=== PATIENT | female | born 1980 | race Caucasian/White ===

== ENCOUNTER 2016-09-15 11:43 | Emergency (ER) | payer OTHER, MEDICAID ==
[~2016-09-15] VITALS: Ht 160 cm; Wt 74.0 kg
[2016-09-15 11:44] VITALS: BP 149/69; PULSE 88; RESP 16; TEMP 98.7; O2SAT 98
[2016-09-15 13:06] VITALS: TEMP 100.1
--- NOTE | 2016-09-15 13:06 | PD ---
HPI Chief Complaint: Headache Time Seen by Provider: 13:06 Travel History International Travel<30 days: No Contact w/Intl Traveler<30days: No Traveled to known affect area: No History of Present Illness HPI 35-year-old female presents to the emergency Department with complaint of body pain from head to toe that started on Saturday. She denies nasal congestion, ear pain, sore throat, cough. Denies chest pain, shortness of breath, abdominal pain, nausea, vomiting. She noticed a red streak to her right breast this morning. She is currently breast-feeding. Reports feeling fatigued. Reports fever of 100.0 this morning prior to ER visit. She was seen at [facility], [place] prior to coming here and was tested for the flu which was negative and told she had an upper respiratory infection and given a prescription for antibiotics. Has taken Tylenol and ibuprofen with no relief of symptoms. Allergies to penicillin and Septra. Does not have current established primary care provider. History of asthma. No other modifying factors or associated signs and symptoms. [facility] Past Medical History Asthma: Yes Respiratory: Yes (ASTHMA) ?: Not LMP: 09/08/2015 Social History Tobacco Use: No Allergies-Medications (Allergen,Severity, Reaction): Coded Allergies: Penicillin (Verified Allergy, Severe, Anaphylaxis, 09/15/16) Septra (Verified Allergy, Severe, Rash, 09/15/16) Reported Meds & Prescriptions Reported Meds & Active Scripts Active Clindamycin (Clindamycin HCl) 300 Mg Cap 300 Mg PO TID 10 Days Ibuprofen 800 Mg Tab 800 Mg PO Q6HR PRN Review of Systems Except as stated in HPI: all other systems reviewed are Neg Physical Exam Narrative GENERAL: Well-nourished, well-developed patient, in no acute distress; febrile with temperature 100.1; appears like she does not feel well; nontoxic-appearing SKIN: Warm and dry. No rash. HEAD: Atraumatic. Normocephalic. EYES: Pupils equal and round at 3 mm with brisk reaction. No scleral icterus. No injection or drainage. PERRLA. ENT: Mucosa pink and moist. No erythema or exudates. No uvular edema. No uvular , palatal, or tonsillar deviation. Airway patent. EARS: Bilateral pinnae and external canals appear within normal limits. Bilateral tympanic membranes without erythema, dullness or perforation. NECK: Trachea midline. No lymphadenopathy. BREAST: Right breast with area of erythema with red streaking noted; patient currently breast-feeding and breast milk noted at the nipple; no skin doubling or skin changes noted; palpable, tender mass noted to the right lateral breast at approximately the 9 o'clock position. CARDIOVASCULAR: Regular rate and rhythm. No murmur appreciated. RESPIRATORY: No accessory muscle use. Clear to auscultation. Breath sounds equal bilaterally. GASTROINTESTINAL: Abdomen soft, non-tender, nondistended. Hepatic and splenic margins not palpable. Bowel sounds are active 4 quadrants. MUSCULOSKELETAL: No obvious deformities. No clubbing. No cyanosis. No edema. BACK: No CVA tenderness. NEUROLOGICAL: Awake and alert. Oriented 3. No obvious cranial nerve deficits. Motor grossly within normal limits. Normal speech. Moves all extremities. 5/5 strength to all extremities. PSYCHIATRIC: Appropriate mood and affect; insight and judgment normal. Data Data Last Documented VS Vital Signs Date Time Temp Pulse Resp B/P Pulse Ox O2 Delivery O2 Flow Rate FiO2 09/15/16 13:06 100.1 09/15/16 11:44 88 16 149/69 98 Orders Us Breast Unilateral (09/15/16 ) Ibuprofen (Motrin) (09/15/16 13:15) Basic Metabolic Panel (Bmp) (09/15/16 13:07) Complete Blood Count With Diff (09/15/16 13:07) Iv Access Insert/Monitor (09/15/16 13:07) Sodium Chlor 0.9% 1000 Ml Inj (Ns 1000 M (09/15/16 13:07) Sodium Chloride 0.9% Flush (Ns Flush) (09/15/16 13:15) Influenzae A/B Antigen (09/15/16 13:15) Labs Laboratory Tests Test 09/15/16 13:35 White Blood Count 11.1 TH/MM3 Red Blood Count 4.27 MIL/MM3 Hemoglobin 12.2 GM/DL Hematocrit 35.5 % Mean Corpuscular Volume 83.1 FL Mean Corpuscular Hemoglobin 28.5 PG Mean Corpuscular Hemoglobin 34.3 % Concent Red Cell Distribution Width 19.2 % Platelet Count 214 TH/MM3 Mean Platelet Volume 8.8 FL Neutrophils (%) (Auto) 81.6 % Lymphocytes (%) (Auto) 11.3 % Monocytes (%) (Auto) 6.7 % Eosinophils (%) (Auto) 0.2 % Basophils (%) (Auto) 0.2 % Neutrophils # (Auto) 9.1 TH/MM3 Lymphocytes # (Auto) 1.3 TH/MM3 Monocytes # (Auto) 0.7 TH/MM3 Eosinophils # (Auto) 0.0 TH/MM3 Basophils # (Auto) 0.0 TH/MM3 CBC Comment DIFF FINAL Differential Comment Sodium Level 141 MEQ/L Potassium Level 3.6 MEQ/L Chloride Level 105 MEQ/L Carbon Dioxide Level 26.8 MEQ/L Anion Gap 9 MEQ/L Blood Urea Nitrogen 7 MG/DL Creatinine 0.85 MG/DL Estimat Glomerular Filtration 76 ML/MIN Rate Random Glucose 97 MG/DL Calcium Level 8.9 MG/DL MDM Medical Decision Making Medical Screen Exam Complete: Yes Emergency Medical Condition: Yes Medical Record Reviewed: Yes Differential Diagnosis Mastitis, breast abscess, cellulitis Narrative Course 35-year-old female with a palpable mass, erythema and erythemic streaking to her right breast. She is currently breast-feeding. She was febrile with temperature of 100.1. Reports fever at home of 100.0. Was seen this morning a [facility] and tested for the flu which was negative. She was given antibiotics for an upper respiratory, infection but the patient has not had upper respiratory symptoms. Influenza ordered. CBC, BMP, right breast ultrasound ordered. IV site obtained and fluid bolus ordered. Ibuprofen ordered. 1408: Negative for influenza. CBC and BMP are unremarkable. 1454: Right breast ultrasound concludes No abscess or fluid collection is identified focally at the 9:00 and 6:00 positions of the right breast. Patient should have clinical followup to ensure that symptoms resolve. If they do not resolve she should be sent for outpatient imaging diagnostic right breast workup. Findings discussed with the patient and ultrasound report provided to the patient. I discussed the patient with my attending physician, Dr. Weber, and she agrees with my treatment plan. Clindamycin administered in the ER. Clindamycin and ibuprofen prescribed for home. Instructed patient to follow up with [employer]. Patient verbalizes understanding and agreement with treatment plan. Patient is medically cleared and stable for discharge. Discussed reasons to return to the emergency department. Instructed patient to follow up with primary care provider. Patient agrees with treatment plan. The patients vital signs are stable and the patient is stable for outpatient follow-up and treatment. Patient discharged home, stable and in no acute distress. 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
[2016-09-15] MEDS ORDERED: SODIUM CHLOR 0.9% 1000 ML INJ 1,000 ML IV SCH (13:07)
[2016-09-15] MEDS ORDERED: SODIUM CHLORIDE 0.9% FLUSH 5 ML FLUSH IVF PRN (13:15)
[2016-09-15] MEDS ORDERED: IBUPROFEN 800 MG TAB PO ONE (13:15)
[2016-09-15 13:51] LABS: AUTOMATED NEUTROPHIL # 9.1 TH/MM3 (1.8-7.7); BASOPHIL % 0.2 % (0.0-2.0); EOSINOPHIL % 0.2 % (0.0-4.0); HEMATOCRIT 35.5 % (35.0-46.0); HEMO FLAGS DIFF FINAL; LYMPH % 11.3 % (9.0-44.0); LYMPHOCYTE # 1.3 TH/MM3 (1.0-4.8); MEAN CELL VOLUME 83.1 FL (80.0-100.0); MEAN CORPUSCULAR HEMOGLOBIN 28.5 PG (27.0-34.0); MEAN CORPUSCULAR HGB CONC 34.3 % (32.0-36.0); MONO % 6.7 % (0.0-8.0); NEUT % 81.6 % (16.0-70.0); PLATELET COUNT 214 TH/MM3 (150-450); RED BLOOD COUNT 4.27 MIL/MM3 (4.00-5.30); RED CELL DISTRIBUTION WIDTH 19.2 % (11.6-17.2); WHITE BLOOD COUNT 11.1 TH/MM3 (4.0-11.0)
[2016-09-15 14:07] LABS: BICARBONATE 26.8 MEQ/L (21.0-32.0); POTASSIUM 3.6 MEQ/L (3.5-5.1)
--- NOTE | 2016-09-15 14:50 | RADRPT ---
EXAM DATE/TIME: 09/15/2016 14:15 [facility] COMPARISON: No previous studies available for comparison. INDICATIONS : Right breast tenderness. MEDICAL HISTORY : Asthma. Right breast pain. SURGICAL HISTORY : None. ENCOUNTER: Initial ACUITY: 1 day PAIN SCORE: 4/10 LOCATION: Right breast. FINDINGS: The right breast was evaluated focally in an area of concern at the 9: 00 position and 6:00 position. Through these areas no fluid collection, mass, or abscess is identifie d. CONCLUSION: No abscess or fluid collection is identified focally at the 9:00 and 6:00 positions of the right renetta st. Patient should have clinical followup to ensure that symptoms resolve. If they do not resolve she should be sent for outpatient imaging diagnostic right breast workup. Valente Multani MD on September 15, 2016 at 14:47 Board Certified Radiologist. This report was verified electronically.
[2016-09-15] MEDS ORDERED: CLIN1CAP6 PO (14:58)
[2016-09-15] MEDS ORDERED: IBUP800T23 PO (14:58)
[2016-09-15] MEDS ORDERED: CLINDAMYCIN 150 MG CAP PO ONE (15:30)
== END 2016-09-15 15:49 | disposition home or self-care (01) ==
LOC: NEPB 11:43
DX: N61.0 Mastitis without abscess (principal); R50.9 Fever, unspecified
CPT/HCPCS: 76642; 80048; 85025; 87804; 96360; 99284; J7030